=== PATIENT | female | born 1935 | race Caucasian/White ===

== ENCOUNTER 2018-01-08 15:30 | Inpatient (IN) ==
--- NOTE | 2018-01-08 16:48 | Emergency Department Note ---
Disposition Clinical Impression: Weakness, Hypocalcemia, Bronchospasm, Hypoxia Disposition: Admitted As Inpatient Condition: Fair Time of Disposition: 19:10 SOB HPI - General Chief Complaint: ED Shortness of Breath/Dyspnea Stated Complaint: JUAN ANTONIO Time Seen by Provider: 01/08/18 15:32 Source: patient, family, EMS Limitations: no limitations Nursing Notes Reviewed: Yes Vital Signs Reviewed: Yes - History of Present Illness 82-year-old female presents to the ED by EMS because of difficulty breathing. For about 2 weeks she has had gradual progression of increasing dyspnea. She was recently admitted to [facility] for cardiopulmonary evaluation. She is also recently underwent partial colectomy within the past 3 months. She has been diagnosed with asthma in the past and was recently started on albuterol MDI with a spacer. No fevers or chills. No sputum with her cough. No chest pain. No abdominal pain. She does take iron supplements and has had dark stools. Worsening generalized weakness over the last 3 days to the point of limited maneuverability at home. Pt Subjective Complaint: shortness of breath Onset (ago): day(s) Context: recent illness Severity: mild Consistency/Duration: intermittent Improves with: bronchodilators Worsens with: nothing Known history of: COPD, asthma Associated symptoms: Reports: denies other symptoms Treatment prior to arrival: bronchodilator Cough present: No Cough Frequency: Intermittent Sputum production: No Sputum Amount: None - Related Data Home Medications Medication Instructions Recorded Confirmed Albuterol Sulfate [Proair Hfa] 2 puff IH Q4H PRN 06/15/16 05/27/17 Calcium Carbonate/Vitamin D3 2 each PO BID 06/15/16 05/27/17 [Calcium 500 + Vit D 200 Caplet] Carvedilol 3.125 mg PO BID 06/15/16 05/27/17 Famotidine [Pepcid] 40 mg PO HS 06/15/16 05/27/17 Ferrous Sulfate 325 mg PO BID 06/15/16 05/27/17 Fluticasone Propionate [Flovent 2 puff IH BID 06/15/16 05/27/17 Hfa] Losartan Potassium [Cozaar] 50 mg PO DAILY 06/15/16 05/27/17 Omeprazole [PriLOSEC] 40 mg PO DAILY 06/15/16 05/27/17 Ascorbate Calcium [Vitamin C] 500 mg PO DAILY 05/27/17 05/27/17 Cyanocobalamin (Vitamin B-12) 5,000 mcg PO DAILY 05/27/17 05/27/17 [Vitamin B12] Previous Rx's Medication Instructions Recorded EPINEPHrine [Epipen] 0.3 mg IM ONCE #1 kit 12/22/16 Allergies Allergy/AdvReac Type Severity Reaction Status Date / Time ferric carboxymaltose Allergy Difficulty Verified 12/26/17 14:09 [From Injectafer] Breathing All systems ED: reviewed and negative except as stated. Constitutional: Denies: fever, chills Cardiovascular: Denies: chest pain Respiratory: Reports: dyspnea, wheezes. Denies: hemoptysis Gastrointestinal: Denies: abdominal pain, nausea, vomiting Genitourinary: Denies: urgency, dysuria Past Medical History - Past Medical History Attestation: Yes The following information was validated with the patient. Medical history: Reports: asthma, cancer, CHF, hypertension, malignancy, renal disease Surgical history: Reports: cataract, other Psychiatric history: Reports: no psych history [employer] history: Reports: no [employer] history - Social History Smoking Status: Never smoker Smokeless Tobacco Status: No Alcohol use: Reports: none Drug use: Reports: none Physical Exam - General Limitations: no limitations General appearance: alert, in no apparent distress - Head Head exam: atraumatic, normocephalic - Eye Eye exam: Present: normal appearance - ENT ENT exam: mucous membranes dry - Neck Neck exam: Present: normal inspection, trachea midline - Chest Chest inspection: Present: normal inspection, symmetric chest wall rise - Respiratory Respiratory exam: Present: normal lung sounds bilaterally. Absent: respiratory distress - Cardiovascular Cardiovascular exam: Present: regular rate - Abdominal Exam Abdominal exam: Present: soft, Non-Tender, tenderness - Extremities Exam Extremities exam: Present: normal inspection - Expanded Lower Extremity Exam Ankle exam: Present: swelling. Absent: tenderness Neurovascular/Tendon exam: Present: normal capillary refill - Back Exam Back exam: Absent: CVA tenderness (R), CVA tenderness (L) - Neurological Exam Neurological exam: Present: alert, oriented X3 - Psychiatric Psychiatric exam: Present: flat affect. Absent: normal affect - Skin Skin exam: Present: warm, dry Course - Reevaluation(s) Reevaluation #1: Improved with the DuoNeb aerosols but still requiring supplemental oxygen at 2 LPM Marked generalized weakness and critical hypocalcemia Awaiting PTH anf Mg but will replace with 3 grams Calcium GLuconate Will need admission due to the global weakness. D/W Dr. Barton to admit Time: 19:31 Vital Signs Temperature 97.8 F 01/08/18 15:31 Pulse Rate 86 01/08/18 15:31 Respiratory Rate 20 01/08/18 15:31 Blood Pressure 100/67 01/08/18 15:31 O2 Sat by Pulse Oximetry 88 01/08/18 15:31 Temperature 97.8 F 01/08/18 15:31 Pulse Rate 86 01/08/18 20:04 Respiratory Rate 14 01/08/18 20:04 Blood Pressure 102/60 01/08/18 20:04 O2 Sat by Pulse Oximetry 94 01/08/18 20:04 Oxygen Delivery Oxygen Delivery Room Air Shortness of Breath/Dyspnea - Lab Data Result diagrams: 01/08/18 17:37 01/08/18 17:37 Lab Results 01/08/18 01/08/18 01/08/18 Range/Units 17:37 17:37 17:37 WBC 11.6 H (4.3-11.1) K/mcL RBC 3.64 L (3.82-4.97) M/mcL Hgb 10.4 L (11.5-15.4) g/dL Hct 32.4 L (35.3-44.9) % MCV 89.0 (83.0-100.0) fL MCH 28.6 (28.0-33.3) pg MCHC 32.1 (31.6-35.5) g/dL RDW 18.0 H (11.5-14.5) % Plt Count 149 (140-400) K/mcL MPV 10.4 (9.4-12.4) fL Immature Gran % 0.9 (0-4) % Seg Neutrophils % 85.9 % Lymphocytes % 9.0 % Monocytes % 3.3 % Eosinophils % 0.8 % Basophils % 0.1 % Neutrophils # 10.0 H (1.6-8.9) K/mcL Lymphocytes # 1.0 (0.6-4.6) K/mcL Monocytes # 0.4 (0.0-1.3) K/mcL Eosinophils # 0.1 (0.0-0.6) K/mcL Basophils # 0.0 (0.0-0.2) K/mcL Nucleated RBCs/100 WBC 0.2 H (0) /100 WBC Immature Plt Fraction 5.5 (1.1-6.1) % Sodium 132 L (136-145) mEq/L Potassium 3.5 (3.5-5.1) mEq/L Chloride 106 (98-107) mEq/L Carbon Dioxide 23 (23-29) mEq/L BUN 21 (8-23) mg/dL Creatinine 0.79 (0.60-1.20) mg/dL Est GFR ( Amer) > 60 (> 60) Est GFR (Non-Af Amer) > 60 (> 60) BUN/Creatinine Ratio 27 H (6-26) Glucose 89 (70-105) mg/dL Calculated Osmolality 276 L (280-300) Calcium 5.7 L* (8.6-10.3) mg/dL Magnesium (1.6-2.6) mg/dL Troponin I 0.03 (< 0.04) ng/mL PTH Intact (10.0-65.0) pg/ml Urine Color (Yellow) Urine Clarity (Clear) Urine pH (5.0-8.0) pH Units Ur Specific [place] (1.010-1.025) Urine Protein (Neg-Trace) mg/dL Urine Glucose (UA) (Normal) mg/dL Urine Ketones (Negative) mg/dL Urine Blood (Negative) Urine Nitrite (Negative) Urine Bilirubin (Negative) Urine Urobilinogen (Normal) mg/dL Ur Leukocyte Esterase (Negative) Urine Microscopic RBC (0-3) per hpf Urine Microscopic WBC (0-3) per hpf Ur Squamous Epith Cells (None-Few) per lpf Urine Bacteria (None-Few) per hpf Hyaline Casts (None-Few) per lpf Ur Culture Indicated? (NO) 01/08/18 01/08/18 01/08/18 Range/Units 17:37 17:37 19:35 WBC (4.3-11.1) K/mcL RBC (3.82-4.97) M/mcL Hgb (11.5-15.4) g/dL Hct (35.3-44.9) % MCV (83.0-100.0) fL MCH (28.0-33.3) pg MCHC (31.6-35.5) g/dL RDW (11.5-14.5) % Plt Count (140-400) K/mcL MPV (9.4-12.4) fL Immature Gran % (0-4) % Seg Neutrophils % % Lymphocytes % % Monocytes % % Eosinophils % % Basophils % % Neutrophils # (1.6-8.9) K/mcL Lymphocytes # (0.6-4.6) K/mcL Monocytes # (0.0-1.3) K/mcL Eosinophils # (0.0-0.6) K/mcL Basophils # (0.0-0.2) K/mcL Nucleated RBCs/100 WBC (0) /100 WBC Immature Plt Fraction (1.1-6.1) % Sodium (136-145) mEq/L Potassium (3.5-5.1) mEq/L Chloride (98-107) mEq/L Carbon Dioxide (23-29) mEq/L BUN (8-23) mg/dL Creatinine (0.60-1.20) mg/dL Est GFR ( Amer) (> 60) Est GFR (Non-Af Amer) (> 60) BUN/Creatinine Ratio (6-26) Glucose (70-105) mg/dL Calculated Osmolality (280-300) Calcium (8.6-10.3) mg/dL Magnesium 1.6 (1.6-2.6) mg/dL Troponin I (< 0.04) ng/mL PTH Intact 71.0 H (10.0-65.0) pg/ml Urine Color Yellow (Yellow) Urine Clarity Cloudy A (Clear) Urine pH 7.0 (5.0-8.0) pH Units Ur Specific [place] 1.017 (1.010-1.025) Urine Protein Negative (Neg-Trace) mg/dL Urine Glucose (UA) Normal (Normal) mg/dL Urine Ketones Negative (Negative) mg/dL Urine Blood Small H (Negative) Urine Nitrite Negative (Negative) Urine Bilirubin Negative (Negative) Urine Urobilinogen Normal (Normal) mg/dL Ur Leukocyte Esterase Large H (Negative) Urine Microscopic RBC 5-15 H (0-3) per hpf Urine Microscopic WBC TNTC H (0-3) per hpf Ur Squamous Epith Cells Few (None-Few) per lpf Urine Bacteria Few (None-Few) per hpf Hyaline Casts Few (None-Few) per lpf Ur Culture Indicated? YES A (NO)
[2018-01-08 17:48] LABS: Basophils % 0.1 %; Eosinophils # 0.1 K/mcL (0.0-0.6); Eosinophils % 0.8 %; Hematocrit 32.4 % (35.3-44.9); Hemoglobin 10.4 g/dL (11.5-15.4); Immature Granulocytes % 0.9 % (0-4); Immature Platelets 5.5 % (1.1-6.1); Mean Corpuscular HGB Conc 32.1 g/dL (31.6-35.5); Mean Corpuscular Hemoglobin 28.6 pg (28.0-33.3); Mean Platelet Volume 10.4 fL (9.4-12.4); Monocytes # 0.4 K/mcL (0.0-1.3); Monocytes % 3.3 %; Nucleated Red Blood Cells 0.2 /100 WBC (0); Platelet Count 149 K/mcL (140-400); Red Blood Count 3.64 M/mcL (3.82-4.97); Segmented Neutrophils % 85.9 %
[2018-01-08 18:17] LABS: BUN/Creatinine Ratio 27 (6-26); Blood Urea Nitrogen 21 mg/dL (8-23); Calcium 5.7 mg/dL (8.6-10.3); Carbon Dioxide 23 mEq/L (23-29); Chloride 106 mEq/L (98-107); Glucose 89 mg/dL (70-105); Osmolality,Calculated 276 (280-300); Potassium 3.5 mEq/L (3.5-5.1); Sodium 132 mEq/L (136-145); eGFR For African Americans > 60 (> 60); eGFR For Non-African Americans > 60 (> 60)
[2018-01-08] MEDS ORDERED: Calcium Gluconate 2,000 MG in 0.9 % Sodium Chloride 50 ML IVPB ONE (18:22)
[2018-01-08 19:44] LABS: Bilirubin,Urine Negative (Negative); Blood,Urine Small (Negative); Clarity,Urine Cloudy (Clear); Color,Urine Yellow (Yellow); Glucose,Urine (UA) Normal (Normal); Ketones,Urine Negative (Negative); Leukocyte Esterase,Urine Large (Negative); Nitrite,Urine Negative (Negative); Protein,Urine Negative (Neg-Trace); Specific Gravity,Urine 1.017 (1.010-1.025); Urobilinogen,Urine Normal (Normal)
[2018-01-08 19:48] LABS: Bacteria,Urine Few per hpf (None-Few); Hyaline Casts,Urine Few per lpf (None-Few); Squamous Epithelial Cell,Urine Few per lpf (None-Few); WBC,Urine TNTC per hpf (0-3)
[2018-01-08] MEDS ORDERED: Naloxone 0.4 MG/ML INJ IVP PRN (23:26)
[2018-01-08] MEDS ORDERED: Acetaminophen 325 MG TABLET PO PRN (23:26)
[2018-01-08] MEDS ORDERED: Ipratropium/Albuterol Neb 3 ML IH PRN (23:32)
--- NOTE | 2018-01-08 23:42 | Internal Med History&Physical ---
Date of Encounter: 01/08/18 Time of Encounter: 22:00 Assessment and Plan (1) Asthma exacerbation Current visit: Yes Status: Acute Pt has Hx of asthma, with increased SOB. Has wheezes, consider asthma exacerbation. - Place pt on steroid and bronchidilator - Cont Oximetry monitoring, O2 supplement. Qualifiers: Asthma severity: unspecified severity Asthma persistence: unspecified Qualified Code(s): J45.901 - Unspecified asthma with (acute) exacerbation (2) CAD (coronary artery disease) Current visit: Yes Status: Acute Pt said she had stent. Will cont home med BB, pt said she takes baby aspirin but it is not on her home med list, will add to her. No chest pain. Qualifiers: Coronary Disease-Associated Artery/Lesion type: [place] artery [place] vs. transplanted heart: [place] heart Associated angina: without angina Qualified Code(s): I25.10 - Atherosclerotic heart disease of [place] coronary artery without angina pectoris (3) Colon cancer Current visit: Yes Status: Acute Had surgery done, cont outpatient follow up Qualifiers: Colon location: unspecified part of colon Qualified Code(s): C18.9 - Malignant neoplasm of colon, unspecified (4) Hypocalcemia Current visit: Yes Status: Acute Pt has low calcium, no albumin level available to calculate correct calcium. Iv Ca supplement given in ER. - Pt has poor intake and chronic diarrhea, she may has Vit D deficiency. Will check 25-OH Vit D level. - Cont closely monitor calcium level - Mild elevated PTH is believed secondary to hypocalcemia (5) Weakness Current visit: Yes Status: Acute Pt has generalized weakness, poor intake, will consult Dietitian, PT/OT, and SW (6) DVT prophylaxis Current visit: No Status: Acute Heparin SC (7) HTN (hypertension) Current visit: No Status: Chronic Cont home med. Qualifiers: Hypertension type: essential hypertension Qualified Code(s): I10 - Essential (primary) hypertension (8) Chest tightness Current visit: Yes Status: Acute Pt report chest tightness. Hx of CAD. - will place pt on Tele - Track 3 sets of troponin - Echo Internal Medicine - H&P: HPI Chief complaint: SOB Admitted From: Home Plans for Post Hospital Care: Home History of present illness: Ms. Goff is a 82 year old female with Hx of asthma, CAD s/p stent, S/p valve replacement, colon cancer s/p surgery present to ER for SOB. Pt is a poor historian, I don't know how reliable the history obtained from her is. Pt has progressive SOB for 4-6 wks, getting worse gradually. She feels generalized weak , with occasionally muscle spasm. Pt has chronic diarrhea and poor intake. She denies cough. She c/o chest tightness but denies chest pain. Pt has no abd pain now but said sometimes pain after eating. Pt has no nausea. In ER, she was treated with duoneb. She was found hypocalcemia with Ca 5.7. Pt was given iv Calcium and was admitted for further management. Past Med Surg Social Fam HX - Past Medical History Medical history: asthma, cancer, CHF, hypertension, malignancy, renal disease Psychiatric history: no psych history - Past Surgical History Surgical History: cataract, other - Social History Smoking Status: Never smoker Smokeless Tobacco Status: No Alcohol use: none Drug use: none - Family History Mother Hx Family Cardiac Disorders: Yes ( of [place]) Father Hx Family Cardiac Disorders: Yes Internal Medicine - H&P: Meds Albuterol Sulfate [Proair Hfa] 2 puff IH Q4H PRN 06/15/16 [History] Calcium Carbonate/Vitamin D3 [Calcium 500 + Vit D 200 Caplet] 2 each PO BID [History] Carvedilol 3.125 mg PO BID 06/15/16 [History] Famotidine [Pepcid] 40 mg PO HS 06/15/16 [History] Ferrous Sulfate 325 mg PO BID 06/15/16 [History] Fluticasone Propionate [Flovent Hfa] 2 puff IH BID 06/15/16 [History] Losartan Potassium [Cozaar] 50 mg PO DAILY 06/15/16 [History] Omeprazole [PriLOSEC] 40 mg PO DAILY 06/15/16 [History] EPINEPHrine [Epipen] 0.3 mg IM ONCE #1 kit 12/22/16 [Rx] Ascorbate Calcium [Vitamin C] 500 mg PO DAILY 05/27/17 [History] Cyanocobalamin (Vitamin B-12) [Vitamin B12] 5,000 mcg PO DAILY 05/27/17 [History ] 3 Allergy/AdvReac Type Severity Reaction Status Date / Time ferric carboxymaltose Allergy Difficulty Verified 02/05/18 14:09 [From Injectafer] Breathing All Systems PM: A 10-system review of systems was performed and is negative for pertinent findings except as documented above in the HPI. - Constitutional Vitals: Temp Pulse Resp BP Pulse Ox 97.6 F 90 18 114/66 92 01/08/18 20:22 01/08/18 20:22 01/08/18 20:22 01/08/18 20:22 01/08/18 20:22 General appearance: Present: cachectic, A&O X 3, no acute distress, answers questions appropriately - Head Head exam: Present: atraumatic, normocephalic - Eye Eye exam: Present: PERRL, conjuntiva pink, sclera anicteric Pupils: Present: PERRL - Neck Neck exam general surgery: Present: supple, trachea midline. Absent: lymphadenopathy - Respiratory Respiratory exam: Present: CTAB, wheezes (scattered wheezes b/l Lt > Rt). Absent: accessory muscle use, rales, rhonchi - Cardiovascular Cardiovascular exam: Present: RRR, +S1, +S2. Absent: diastolic murmur, gallop, rubs, systolic murmur - GI/Abdominal GI/Abdominal exam: Present: normal bowel sounds, soft, no peritoneal signs. Absent: distended, tenderness - Extremities Exam Extremities exam: Present: warm, radial pulses palpable and symmetrical. Absent : calf tenderness, cyanotic, pedal edema - Neurological Exam Neurological exam: Present: CN II-XII intact, oriented X3, no focal deficits. Absent: pronater drift, facial droop, speech deficit - Skin Skin exam: Present: dry, intact Internal Med - H&P Results - Labs CBC & Chem 7: 01/08/18 17:37 01/08/18 17:37 - EKG Data -: EKG Interpreted by Myself (With occasional PACs) EKG shows normal: sinus rhythm Rate: normal
[2018-01-08] MEDS ORDERED: predniSONE 20 MG TABLET PO SCH (23:45)
[2018-01-09] MEDS: cefTRIAXone 1,000 MG in Water for inj. (sterile) 20 ML 10 ML IVPB SCH (00:23)
[2018-01-09 00:54] LABS: Basophils % 0.2 %; Eosinophils % 0.4 %; Hematocrit 28.8 % (35.3-44.9); Hemoglobin 9.3 g/dL (11.5-15.4); Immature Granulocytes % 0.7 % (0-4); Lymphocytes # 1.2 K/mcL (0.6-4.6); Lymphocytes % 12.4 %; Mean Corpuscular HGB Conc 32.3 g/dL (31.6-35.5); Mean Corpuscular Volume 89.7 fL (83.0-100.0); Mean Platelet Volume 10.3 fL (9.4-12.4); Monocytes # 0.4 K/mcL (0.0-1.3); Neutrophils # 8.2 K/mcL (1.6-8.9); Platelet Count 131 K/mcL (140-400); Red Blood Count 3.21 M/mcL (3.82-4.97); Red Cell Distribution Width 17.9 % (11.5-14.5); Segmented Neutrophils % 82.3 %
[2018-01-09 01:15] LABS: BUN/Creatinine Ratio 27 (6-26); Blood Urea Nitrogen 28 mg/dL (8-23); Calcium 7.7 mg/dL (8.6-10.3); Carbon Dioxide 25 mEq/L (23-29); Chloride 97 mEq/L (98-107); Glucose 83 mg/dL (70-105); Magnesium 2.1 mg/dL (1.6-2.6); Osmolality,Calculated 271 (280-300); Potassium 4.5 mEq/L (3.5-5.1); Sodium 128 mEq/L (136-145); eGFR For African Americans > 60 (> 60); eGFR For Non-African Americans 50 (> 60)
[2018-01-09] MEDS: Ipratropium/Albuterol Neb 3 ML IH SCH ×4 (04:52→22:10)
[2018-01-09] MEDS: *HR* Heparin 5,000 UNIT/ML VIAL SQ SCH ×2 (06:25→17:30)
--- NOTE | 2018-01-09 08:30 | Internal Med Progress Note ---
Date of Encounter: 01/09/18 Time of Encounter: 08:28 - Assessment and plan (1) Asthma exacerbation Current Visit: Yes Status: Acute Assessment and plan: Continue with steroids but switch to IV solumedrol 40 Q8hrs. Patient has very audible wheezes throughout. Continue nebulizers. Wean down oxygen as tolerated. Qualifiers: Asthma severity: unspecified severity Asthma persistence: unspecified Qualified Code(s): J45.901 - Unspecified asthma with (acute) exacerbation (2) UTI (urinary tract infection) Current Visit: Yes Status: Acute Assessment and plan: Continue ceftriaxone for now. Follow up on cultures. Qualifiers: Urinary tract infection type: acute cystitis Hematuria presence: without hematuria Qualified Code(s): N30.00 - Acute cystitis without hematuria (3) Hyponatremia Current Visit: Yes Status: Acute Assessment and plan: Since possibly hypovolemic hyponatremia. She does have somewhat of an elevated creatinine above baseline as well. We will start the patient with a trial of IV fluids and check labs in the morning. (4) Acute kidney failure Current Visit: Yes Status: Acute Assessment and plan: Start IV fluids. Check labs in the morning. Avoid nephrotoxins. Qualifiers: Acute renal failure type: unspecified Qualified Code(s): N17.9 - Acute kidney failure, unspecified (5) Chest tightness Current Visit: Yes Status: Acute Assessment and plan: Possible from asthma exacerbation. We will continue to trend troponins. Her troponins did go up from 0.03 0.05. Possibly demand. We will check an echocardiogram. Check an EKG. (6) CAD (coronary artery disease) Current Visit: Yes Status: Acute Assessment and plan: Continue aspirin. Continue beta tavon. Not sure why patient is not on a statin. Qualifiers: Coronary Disease-Associated Artery/Lesion type: [place] artery [place] vs. transplanted heart: [place] heart Associated angina: without angina Qualified Code(s): I25.10 - Atherosclerotic heart disease of [place] coronary artery without angina pectoris (7) Hypocalcemia Current Visit: Yes Status: Acute Assessment and plan: Received IV calcium in the ED. Follow-up on vitamin D levels. Check TSH. Check ionized calcium. (8) HTN (hypertension) Current Visit: No Status: Chronic Assessment and plan: Continue Coreg and hold losartan due to acute kidney failure as above.. Qualifiers: Hypertension type: essential hypertension Qualified Code(s): I10 - Essential (primary) hypertension (9) DVT prophylaxis Current Visit: No Status: Acute Assessment and plan: Heparin Subcutaneous - Subjective Interval history: Patient was seen and examined. No acute events. Admitted with shortness of breath and is being treated for asthma exacerbation. Also thought to have a urinary tract infection and hypocalcemia. The patient is maintained on 2 L nasal cannula oxygen. Afebrile. - Constitutional Vitals: Temp Pulse Resp BP Pulse Ox 97.4 F L 112 14 125/89 100 01/09/18 07:14 01/09/18 07:14 01/09/18 07:14 01/09/18 07:14 01/09/18 07:14 General appearance: Present: cachectic, A&O X 3, no acute distress, answers questions appropriately Exam: GEN: NAD. lethargic CVS: RRR. S1, S2, No m/r/g RESP: Diminished with audible wheezes throughout lung [place]. ABD: Soft, NT, ND, +BS EXT: No edema. 2+ DP. No rashes NEURO: Nonfocal Internal Medicine: Result - Labs CBC & Chem 7: 01/09/18 00:22 01/09/18 00:22 Labs: Short CBC 01/09/18 Range/Units 00:22 WBC 9.9 (4.3-11.1) K/mcL Hgb 9.3 L (11.5-15.4) g/dL Hct 28.8 L (35.3-44.9) % Plt Count 131 L (140-400) K/mcL Neutrophils # 8.2 (1.6-8.9) K/mcL BMP 01/09/18 00:22 Sodium 128 L Potassium 4.5 D Chloride 97 L Carbon Dioxide 25 BUN 28 H Creatinine 1.05 Glucose 83 Calcium 7.7 L Cardiac Enzymes 01/09/18 01/09/18 Range/Units 00:22 05:39 Troponin I 0.03 0.05 H* (< 0.04) ng/mL Consult Discharge Plan - Plan Referrals: Tonio Jacobs MD [Primary Care Provider] -
[2018-01-09 10:28] LABS: Alanine Aminotransferase 20 Units/L (7-52); Albumin < 1.5 g/dL (3.5-5.7); Alkaline Phosphatase 108 Units/L (34-104); Aspartate Amino Transferase 20 Units/L (13-39); Bilirubin,Direct 0.1 mg/dL (0.0-0.2); Bilirubin,Indirect 0.2 mg/dL (0.0-1.2); Bilirubin,Total 0.3 mg/dL (0.3-1.0); Total Protein 3.3 g/dL (6.4-8.9)
[2018-01-09 10:46] LABS: VBG Ionized Calcium 0.94 mmol/L (1.15-1.35)
[2018-01-09] MEDS: Aspirin Enteric Coated 81 MG Tablet PO SCH (11:10)
[2018-01-09] MEDS: Ascorbic Acid 500 MG TABLET PO SCH (11:10)
[2018-01-09] MEDS: 0.9 % Sodium Chloride 1,000 ML IVC SCH (11:11)
[2018-01-09] MEDS: Cyanocobalamin (B-12) 1,000 MCG TABLET PO SCH (11:12)
[2018-01-09] MEDS: Beclomethasone 80mcg MDI IH SCH ×2 (11:47→22:10)
[2018-01-09] MEDS ORDERED: Perflutren Lipid Microsphere 1.3 ML in 0.9 % Sodium Chloride 8.7 ML IVP ONE (16:34)
[2018-01-09] MEDS ORDERED: Perflutren Lipid Microsphere 2 ML VIAL ONE (16:49)
[2018-01-09] MEDS: MethylPREDNISolone 40 MG/ML VIAL IVP SCH (17:30)
[2018-01-09] MEDS ORDERED: Calcium Gluconate 2,000 MG in 0.9 % Sodium Chloride 50 ML IVPB ONE (17:50)
[2018-01-09] MEDS ORDERED: Famotidine 20 MG TABLET PO SCH (21:00)
[2018-01-10] MEDS: cefTRIAXone 1,000 MG in Water for inj. (sterile) 20 ML 10 ML IVPB SCH ×2 (00:12→23:28)
[2018-01-10] MEDS: MethylPREDNISolone 40 MG/ML VIAL IVP SCH ×2 (00:13→09:55)
[2018-01-10] MEDS: 0.9 % Sodium Chloride 1,000 ML IVC SCH (02:28)
[2018-01-10] MEDS: Ipratropium/Albuterol Neb 3 ML IH SCH ×4 (03:57→22:25)
[2018-01-10] MEDS: *HR* Heparin 5,000 UNIT/ML VIAL SQ SCH ×2 (05:46→17:44)
--- NOTE | 2018-01-10 08:15 | Internal Med Progress Note ---
Date of Encounter: 01/10/18 Time of Encounter: 11:10 - Assessment and plan (1) Asthma exacerbation Current Visit: Yes Status: Acute Assessment and plan: Patient continues to have wheezing although it is improving. Continue treating with systemic steroids. Check for home oxygen requirements. Bronchodilators. Qualifiers: Asthma severity: moderate Asthma persistence: persistent Qualified Code(s ): J45.41 - Moderate persistent asthma with (acute) exacerbation (2) Anemia Current Visit: Yes Status: Chronic Assessment and plan: Hemoglobin 9.4. Stable. Qualifiers: Anemia type: unspecified type Qualified Code(s): D64.9 - Anemia, unspecified (3) Demand ischemia Current Visit: Yes Status: Acute Assessment and plan: Mild elevation in troponin at 0.09. Echo ordered. Will follow results. No chest pain reported today. (4) CAD (coronary artery disease) Current Visit: Yes Status: Chronic Assessment and plan: Continue aspirin, beta tavon. Qualifiers: Coronary Disease-Associated Artery/Lesion type: [place] artery [place] vs. transplanted heart: [place] heart Associated angina: without angina Qualified Code(s): I25.10 - Atherosclerotic heart disease of [place] coronary artery without angina pectoris (5) Chest tightness Current Visit: Yes Status: Acute Assessment and plan: Improved. Could be related to acute asthma exacerbation and cough. Awaiting 2- D echocardiogram. (6) DVT prophylaxis Current Visit: No Status: Acute Assessment and plan: On subcutaneous heparin (7) HTN (hypertension) Current Visit: Yes Status: Chronic Assessment and plan: Blood pressure is well controlled. Qualifiers: Hypertension type: essential hypertension Qualified Code(s): I10 - Essential (primary) hypertension (8) Hypocalcemia Current Visit: Yes Status: Acute Assessment and plan: Continue oral supplementation (9) UTI (urinary tract infection) Current Visit: Yes Status: Acute Assessment and plan: Urine culture positive for gram-negative rods. Patient is receiving ceftriaxone at this time. We will await final culture results Qualifiers: Urinary tract infection type: acute cystitis Hematuria presence: without hematuria Qualified Code(s): N30.00 - Acute cystitis without hematuria (10) Hyponatremia Current Visit: Yes Status: Acute Assessment and plan: Sodium 130 today. Could be related to Lasix use. - Subjective Interval history: Patient is awake and alert. Feels better today. Shortness of breath is improving. Denies any chest pain. - Constitutional Vitals: Temp Pulse Resp BP Pulse Ox 97.5 F L 88 17 95/60 97 01/10/18 06:50 01/10/18 06:50 01/10/18 06:50 01/10/18 06:50 01/10/18 06:50 General appearance: Present: cachectic, A&O X 3, no acute distress, answers questions appropriately - Neck Neck exam general surgery: Present: supple, trachea midline. Absent: lymphadenopathy - Respiratory Respiratory exam: Present: CTAB, wheezes. Absent: accessory muscle use, rales, rhonchi - Cardiovascular Cardiovascular exam: Present: RRR, +S1, +S2. Absent: diastolic murmur, gallop, rubs, systolic murmur - GI/Abdominal GI/Abdominal exam: Present: normal bowel sounds, soft, no peritoneal signs. Absent: distended, tenderness - Extremities Exam Extremities exam: Present: warm, radial pulses palpable and symmetrical. Absent : calf tenderness, cyanotic, pedal edema Internal Medicine: Result - Labs CBC & Chem 7: 01/10/18 08:11 01/10/18 08:11 Labs: Cardiac Enzymes 01/09/18 01/09/18 Range/Units 10:17 17:03 Troponin I 0.04 H* 0.09 H* (< 0.04) ng/mL Consult Discharge Plan - Plan Referrals: Tonio Jacobs MD [Primary Care Provider] -
[2018-01-10 08:28] LABS: Basophils % 0.1 %; Hematocrit 29.3 % (35.3-44.9); Hemoglobin 9.4 g/dL (11.5-15.4); Immature Granulocytes % 0.7 % (0-4); Lymphocytes # 0.6 K/mcL (0.6-4.6); Lymphocytes % 7.1 %; Mean Corpuscular HGB Conc 32.1 g/dL (31.6-35.5); Mean Corpuscular Hemoglobin 28.5 pg (28.0-33.3); Mean Corpuscular Volume 88.8 fL (83.0-100.0); Mean Platelet Volume 10.3 fL (9.4-12.4); Monocytes # 0.2 K/mcL (0.0-1.3); Monocytes % 1.7 %; Neutrophils # 8.2 K/mcL (1.6-8.9); Platelet Count 179 K/mcL (140-400); Red Cell Distribution Width 18.1 % (11.5-14.5); Segmented Neutrophils % 90.4 %
[2018-01-10 08:43] LABS: BUN/Creatinine Ratio 32 (6-26); Blood Urea Nitrogen 32 mg/dL (8-23); Calcium 7.9 mg/dL (8.6-10.3); Carbon Dioxide 23 mEq/L (23-29); Chloride 99 mEq/L (98-107); Glucose 111 mg/dL (70-105); Osmolality,Calculated 278 (280-300); Potassium 4.6 mEq/L (3.5-5.1); Sodium 130 mEq/L (136-145); eGFR For African Americans > 60 (> 60); eGFR For Non-African Americans 54 (> 60)
[2018-01-10] MEDS: Aspirin Enteric Coated 81 MG Tablet PO SCH (09:54)
[2018-01-10] MEDS: Cyanocobalamin (B-12) 1,000 MCG TABLET PO SCH (09:54)
[2018-01-10] MEDS: Ascorbic Acid 500 MG TABLET PO SCH (09:55)
[2018-01-10] MEDS: Beclomethasone 80mcg MDI IH SCH ×2 (11:45→22:25)
[2018-01-10] MEDS: predniSONE 20 MG TABLET PO SCH (17:43)
[2018-01-10] MEDS ORDERED: Melatonin 3 MG TABLET PO PRN (23:08)
[2018-01-11] MEDS: Ipratropium/Albuterol Neb 3 ML IH SCH ×3 (04:17→15:55)
[2018-01-11 06:01] LABS: Basophils % 0.2 %; Eosinophils % 0.2 %; Hemoglobin 7.9 g/dL (11.5-15.4); Immature Granulocytes % 3.1 % (0-4); Lymphocytes # 2.1 K/mcL (0.6-4.6); Lymphocytes % 15.9 %; Mean Corpuscular HGB Conc 34.3 g/dL (31.6-35.5); Mean Corpuscular Hemoglobin 29.6 pg (28.0-33.3); Mean Corpuscular Volume 86.1 fL (83.0-100.0); Mean Platelet Volume 10.7 fL (9.4-12.4); Monocytes # 0.4 K/mcL (0.0-1.3); Monocytes % 3.1 %; Nucleated Red Blood Cells 0.2 /100 WBC (0); Platelet Count 124 K/mcL (140-400); Red Blood Count 2.67 M/mcL (3.82-4.97); Red Cell Distribution Width 18.3 % (11.5-14.5); Segmented Neutrophils % 77.5 %
[2018-01-11] MEDS: *HR* Heparin 5,000 UNIT/ML VIAL SQ SCH (06:30)
[2018-01-11 06:39] LABS: Neutrophils # 10.2 K/mcL (1.6-8.9)
[2018-01-11 06:42] LABS: Hypochromasia Present (Not Present); Platelet Clumps Few (Not Present); Platelet Estimate Slight Decrease (Normal); Smudge Cells Present (Not Present)
[2018-01-11] MEDS: Cyanocobalamin (B-12) 1,000 MCG TABLET PO SCH (08:56)
[2018-01-11] MEDS: Ascorbic Acid 500 MG TABLET PO SCH (08:56)
[2018-01-11] MEDS: predniSONE 20 MG TABLET PO SCH (08:57)
[2018-01-11] MEDS: Aspirin Enteric Coated 81 MG Tablet PO SCH (08:57)
[2018-01-11] MEDS: Beclomethasone 80mcg MDI IH SCH (10:39)
[2018-01-11 11:22] LABS: Hematocrit 26.4 % (35.3-44.9); Hemoglobin 8.7 g/dL (11.5-15.4)
[2018-01-11 12:28] LABS: BUN/Creatinine Ratio 30 (6-26); Blood Urea Nitrogen 30 mg/dL (8-23); Calcium 7.5 mg/dL (8.6-10.3); Carbon Dioxide 20 mEq/L (23-29); Chloride 102 mEq/L (98-107); Glucose 177 mg/dL (70-105); Osmolality,Calculated 279 (280-300); Potassium 5.9 mEq/L (3.5-5.1); Sodium 129 mEq/L (136-145); eGFR For African Americans > 60 (> 60); eGFR For Non-African Americans 54 (> 60)
--- NOTE | 2018-01-11 14:19 | Discharge Summary ---
- NOTES TO OUTPATIENT PROVIDER Notes to Outpatient Provider: Patient with chronic anemia. Refused colonoscopy at this time in favur of conservative management Orders not resulted at time of discharge: Pending orders 01/11/18 17:00 Hemoglobin and Hematocrit [HEME] Q6H Date of Encounter: 01/11/18 Time of Encounter: 14:15 - Discharge Diagnosis (1) Asthma exacerbation Priority: Primary Status: Acute Qualifiers: Asthma severity: moderate Asthma persistence: persistent Qualified Code(s ): J45.41 - Moderate persistent asthma with (acute) exacerbation (2) Anemia Priority: Secondary Status: Chronic Qualifiers: Anemia type: iron deficiency Iron deficiency anemia type: chronic blood loss Qualified Code(s): D50.0 - Iron deficiency anemia secondary to blood loss (chronic) (3) Demand ischemia Priority: Secondary Status: Acute (4) CAD (coronary artery disease) Priority: Secondary Status: Chronic Qualifiers: Coronary Disease-Associated Artery/Lesion type: [place] artery [place] vs. transplanted heart: [place] heart Associated angina: without angina Qualified Code(s): I25.10 - Atherosclerotic heart disease of [place] coronary artery without angina pectoris (5) Chest tightness Priority: Secondary Status: Acute (6) DVT prophylaxis Priority: Secondary Status: Acute (7) HTN (hypertension) Priority: Secondary Status: Chronic Qualifiers: Hypertension type: essential hypertension Qualified Code(s): I10 - Essential (primary) hypertension (8) Hypocalcemia Priority: Secondary Status: Acute (9) UTI (urinary tract infection) Priority: Secondary Status: Acute Qualifiers: Urinary tract infection type: acute cystitis Hematuria presence: without hematuria Qualified Code(s): N30.00 - Acute cystitis without hematuria (10) Hyponatremia Priority: Secondary Status: Chronic Hospital course: Ms. Goff is a 82 year old female patient with history of asthma with chronic bronchitis, CAD, colon cancer, hypertension presented to the ER with complaints of worsening shortness of breath. She was diagnosed with acute asthma exacerbation bronchodilators and intravenous steroids. She was also placed on O2 supplementation. Her symptoms have slowly improved with this treatment plan. She also describes some chest tightness and had mild troponin elevation which is likely from demand ischemia. 2-D echocardiogram of the heart done here showed EF of 65%. Her shortness of breath has significantly improved but patient remains dyspneic with minimal ambulation and her oxygen saturations have dropped to 87% with minimal activity. As such she would benefit from home oxygen. She does have chronic asthma and bronchitis which is in a stable condition at home prior to this episode. She will follow up with her primary care provider for further management. She did have a decrease in her hemoglobin levels during her stay here which could be hemodilution. However given her prior history of colon cancer, I recommended colonoscopy. After discussing with her , the patient declined this procedure at this time. She will follow-up outpatient with her surgeon who has managed her previously. Her hemoglobin levels today were at 8.7 at the time of discharge. She will be discharged today on a prednisone taper and will also complete an antibiotic course for bronchitis and UTI related to [place]. Patient does take Lasix at home which was initially held here. She may resume taking this medication at home. Her potassium level today was 5.9 but it was a hemolyzed sample. She does take potassium at home while she is on Lasix and may resume taking it after discharge. Discharge discussed with: patient, family - Time Spent with Patient Total time spent providing and/or coordinating discharge services: Greater than 30 minutes (40 min) - Discharge Medications Prescriptions: Ipratropium/Albuterol Neb [Duoneb] 3 ml IH [id number] #60 inhsol levoFLOXacin [Levaquin] 500 mg PO DAILY #7 tablet predniSONE [PredniSONE] 40 mg PO DAILY 8 Days tablet Home Medications: Albuterol Sulfate [Proair Hfa] 2 puff IH Q4H PRN 06/15/16 [History] Calcium Carbonate/Vitamin D3 [Calcium 500-Vit D3 200 Caplet] 2 each PO BID 06/15 [History] Carvedilol 3.125 mg PO BID 06/15/16 [History] Ferrous Sulfate 325 mg PO BID 06/15/16 [History] Fluticasone Propionate [Flovent Hfa] 2 puff IH BID 06/15/16 [History] Losartan Potassium [Cozaar] 50 mg PO DAILY 06/15/16 [History] Omeprazole [PriLOSEC] 40 mg PO DAILY 06/15/16 [History] EPINEPHrine [Epipen] 0.3 mg IM ONCE #1 kit 12/22/16 [Rx] Ascorbate Calcium [Vitamin C] 500 mg PO DAILY 05/27/17 [History] Cyanocobalamin (Vitamin B-12) [Vitamin B12] 5,000 mcg PO DAILY 05/27/17 [History ] Atorvastatin [Lipitor] 40 mg PO HS 01/09/18 [History] Furosemide [Lasix] 2 tab PO BID 01/09/18 [History] Potassium Chloride 1 tab PO BID 01/09/18 [History] Ipratropium/Albuterol Neb [Duoneb] 3 ml IH [id number] #60 inhsol 01/11/18 [Rx] levoFLOXacin [Levaquin] 500 mg PO DAILY #7 tablet 01/11/18 [Rx] predniSONE [PredniSONE] 40 mg PO DAILY 8 Days tablet 01/11/18 [Rx] Allergies/Adverse Reactions: 3 Allergy/AdvReac Type Severity Reaction Status Date / Time ferric carboxymaltose Allergy Difficulty Verified 12/26/17 14:09 [From Injectafer] Breathing Date of admission: 01/08/18 23:26 Primary care physician: Tonio Jacobs MD Consults: 01/08/18 23:33 consult to bar turner [Consult to Nutrition] [CONS] Routine Comment: Consulting Provider: NUTRITION Reason for Dietary Consult: PO Supplementation Discharging clinician: Louis Hodge Anticipated date of discharge: 01/11/18 - Constitutional Vitals: Temp Pulse Resp BP Pulse Ox 97.4 F L 87 18 96/60 100 01/11/18 11:16 01/11/18 11:16 01/11/18 11:16 01/11/18 11:16 01/11/18 11:16 General appearance: Present: cachectic, A&O X 3, no acute distress, answers questions appropriately - Neck Neck exam general surgery: Present: supple, trachea midline. Absent: lymphadenopathy - Respiratory Respiratory exam: Present: CTAB. Absent: accessory muscle use, rales, rhonchi, wheezes - Cardiovascular Cardiovascular exam: Present: RRR, +S1, +S2. Absent: diastolic murmur, gallop, rubs, systolic murmur - GI/Abdominal GI/Abdominal exam: Present: normal bowel sounds, soft, no peritoneal signs. Absent: distended, tenderness - Extremities Exam Extremities exam: Present: warm, radial pulses palpable and symmetrical. Absent : calf tenderness, cyanotic, pedal edema - Neurological Exam Neurological exam: Present: alert, oriented X3, no focal deficits. Absent: facial droop, speech deficit - Skin Skin exam: Present: dry, intact - Patient Status Disposition: Home Health Service Condition: Good Functional capacity at discharge: uses cane/walker Overall status at discharge: patient is progressing back to baseline - Discharge Instructions Instructions: Asthma (DC), Acute Kidney Injury (DC), Urinary Tract Infection in Women (DC) Follow Up With: Tonio Jacobs MD [Primary Care Provider] - 01/17/18 1:15 am (Please follow up a sschedule...) - Diet and Activity Activity: increase activity as tolerated, wear oxygen at all times Diet: low fat, low cholesterol, low salt diet
--- NOTE | 2018-01-11 14:31 | Physician Discharge Referral ---
Home Health/Hosp Referral Info Transfer to: Home Health Provider in Charge Post Discharge: PCP - Diagnosis (1) Asthma exacerbation Priority: Primary Status: Acute (2) Anemia Priority: Secondary Status: Chronic (3) Demand ischemia Priority: Secondary Status: Acute (4) CAD (coronary artery disease) Priority: Secondary Status: Chronic (5) Chest tightness Priority: Secondary Status: Acute (6) DVT prophylaxis Priority: Secondary Status: Acute (7) HTN (hypertension) Priority: Secondary Status: Chronic (8) Hypocalcemia Priority: Secondary Status: Acute (9) UTI (urinary tract infection) Priority: Secondary Status: Acute (10) Hyponatremia Priority: Secondary Status: Chronic - Respiratory Orders Oxygen / L per min (2) Smoking Cessation: Smoking cessation has been advised. For more information, call the [employer] Quit Line at [phone]. - Diet/Nutrition Diet/Nutrition Orders: Cardiac - Activity Activity Orders: Walker - Services Needed Following services are medically necessary services: Nursing, Home Health Aide, Physical Therapy, Occupational Therapy - Transfer Medications Prescriptions: Ipratropium/Albuterol Neb [Duoneb] 3 ml IH [id number] #60 inhsol levoFLOXacin [Levaquin] 500 mg PO DAILY #7 tablet predniSONE [PredniSONE] 40 mg PO DAILY 8 Days tablet Home Medications: Albuterol Sulfate [Proair Hfa] 2 puff IH Q4H PRN 06/15/16 [History] Calcium Carbonate/Vitamin D3 [Calcium 500-Vit D3 200 Caplet] 2 each PO BID 06/15 [History] Carvedilol 3.125 mg PO BID 06/15/16 [History] Ferrous Sulfate 325 mg PO BID 06/15/16 [History] Fluticasone Propionate [Flovent Hfa] 2 puff IH BID 06/15/16 [History] Losartan Potassium [Cozaar] 50 mg PO DAILY 06/15/16 [History] Omeprazole [PriLOSEC] 40 mg PO DAILY 06/15/16 [History] EPINEPHrine [Epipen] 0.3 mg IM ONCE #1 kit 12/22/16 [Rx] Ascorbate Calcium [Vitamin C] 500 mg PO DAILY 05/27/17 [History] Cyanocobalamin (Vitamin B-12) [Vitamin B12] 5,000 mcg PO DAILY 05/27/17 [History ] Atorvastatin [Lipitor] 40 mg PO HS 01/09/18 [History] Furosemide [Lasix] 2 tab PO BID 01/09/18 [History] Potassium Chloride 1 tab PO BID 01/09/18 [History] Ipratropium/Albuterol Neb [Duoneb] 3 ml IH [id number] #60 inhsol 01/11/18 [Rx] levoFLOXacin [Levaquin] 500 mg PO DAILY #7 tablet 01/11/18 [Rx] predniSONE [PredniSONE] 40 mg PO DAILY 8 Days tablet 01/11/18 [Rx] Allergies/Adverse Reactions: 3 Allergy/AdvReac Type Severity Reaction Status Date / Time ferric carboxymaltose Allergy Difficulty Verified 12/26/17 14:09 [From Injectafer] Breathing Certification: Further, I certify that my clinical findings support that this patient is homebound (i.e. absences from home require considerable and taxing effort and are for medical reasons or nondenominational services or infrequently or short duration when for other reasons) because: Homebound Reason: Patient requires assistance of a person or device to safely leave home, Severity of cardiac or pulmonary status limits activity tolerance Attestation: My signature below is to certify that this patient is under my care and that I, or nurse practitioner, or a physician's dental laboratory assistant working with me, has a face-to -face encounter with this patient.
[2018-01-11 15:53] VITALS: BP 116/60
--- NOTE | 2018-01-12 20:45 | Electrocardiograph Report ---
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
== END 2018-01-11 16:38 | disposition home health service (06) | DRG 202 ==
LOC: 2ANU 15:30 → EMEROO 15:30 → 2ANU 20:23 → SUATTDRO 23:26
PROVIDERS: ADMIT Nurse Practitioner Family; ATTEND Internal Medicine